=== PATIENT | male | born 1975 | race Two or more races ===

== ENCOUNTER → 2024-03-02 | Outpatient (CLI) | payer BC, SELFPAY ==
--- NOTE | 2024-03-02 08:00 | XR_ITS ---
Examination: CT maxillofacial, without intravenous contrast. 2-D sagittal reconstructions. 3-D reconstructions. Date and time of exam:March 02, 2024 0759 hours INDICATIONS: Chronic sinus pressure and pain months CTDI: vol (mGy):7.72 DLP: (mGycm):121 Technique: Multiple axial images of maxillofacial region, 3.0 mm slice thickness. 2-D sagittal and coronal reconstructions. 3-D reconstructions. Low dose protocols were performed. One or more of the following dose reduction techniques were used; automated exposure control, adjustment of the mA and/or KV according to patient size, use of iterative reconstruction technique. Findings: Mild mucosal thickening in the ethmoid air cells Pneumatization of the middle turbinates Fluid level in the right maxillary antrum 13 mm retention cyst right maxillary antrum Moderate hypertrophy left inferior nasal turbinate Mild prominence of the nasopharyngeal soft tissue Symmetrical mastoid aeration IMPRESSION: 13 mm retention cyst right maxillary antrum Acute right maxillary sinusitis.
== END | disposition home or self-care (01) ==
LOC: CCTX 07:44
PROVIDERS: PCP Family Medicine; Referring Provider Family Medicine; Visit Provider Family Medicine
DX: J32.0 Chronic maxillary sinusitis (principal); G93.0 Cerebral cysts
CPT/HCPCS: 70486

== ENCOUNTER → 2024-12-08 | Outpatient (CLI) | payer BC, SELFPAY ==
--- NOTE | 2024-12-08 15:52 | XR_ITS ---
EXAMINATION: Cervical spine, 5 views Technique: Cervical spine AP, AP odontoid, lateral, bilateral obliques, 5 views Exam date and time: December 08, 2024, 1611 hours, comparison November 26, 2017 INDICATIONS: Neck pain beginning 3 months ago. FINDINGS: Satisfactory alignment cervical vertebral bodies. No cervical fracture. Intact odontoid. Advanced disc narrowing at C4-C5, C5-C6, C6-C7 with bilateral mild to moderate neural foraminal stenosis IMPRESSION: Advanced degenerative disc disease C4-C5, C5-C6, C6-C7
== END | disposition home or self-care (01) ==
PROVIDERS: PCP Family Medicine; Referring Provider Family Medicine; Visit Provider Family Medicine
DX: M50.321 Other cervical disc degeneration at C4-C5 level (principal)
CPT/HCPCS: 72050